=== PATIENT | male | born 1975 | race African-American/Black ===

== ENCOUNTER 2021-05-05 03:40 | Emergency (ER) | payer OTHER ==
[~2021-05-05] VITALS: Ht 175.3 cm; Wt 73.5 kg
[2021-05-05 03:40] VITALS: BP 124/79
[2021-05-05] MEDS ORDERED: DOXY100C2 PO (04:58)
[2021-05-05] MEDS ORDERED: PENICILLIN G BENZATHINE 2.4 MMU/4 ML ML IM ONE ×2 (05:00→05:02)
[2021-05-05] MEDS ORDERED: CEFTRIAXONE 500 MG VIAL IM ONE (05:00)
[2021-05-05] MEDS ORDERED: LIDOCAINE /MPF 1% VIAL 5 ML VIAL ONE (05:02)
[2021-05-05] MEDS ORDERED: CEFTRIAXONE 500 MG VIAL ONE (05:02)
== END 2021-05-05 05:48 | disposition home or self-care (01) ==
LOC: ER 03:47
DX: A64 Unspecified sexually transmitted disease (principal)
CPT/HCPCS: 87491; 87591; 96372 ×2; 99284; J0558; J0696; J3490

== ENCOUNTER 2021-07-16 05:07 | Emergency (ER) | payer OTHER ==
[~2021-07-16] VITALS: Ht 167.6 cm; Wt 59.0 kg
[~2021-07-16 05:07] MED LIST: DOXY100C2 PO
[2021-07-16 05:19] VITALS: BP 145/60
[2021-07-16] MEDS ORDERED: DOXY100C2 PO (05:22)
[2021-07-16] MEDS ORDERED: CEFTRIAXONE 500 MG VIAL ONE (05:24)
[2021-07-16] MEDS ORDERED: DOXYCYCLINE HYCLATE (100 MG) 100 MG TABLET ONE (05:24)
[2021-07-16] MEDS ORDERED: LIDOCAINE /MPF 1% VIAL 5 ML VIAL ONE (05:24)
--- NOTE | 2021-07-16 05:24 | NUR ---
BIBS C/O HAVING STD SYMPTOMS, PENIS DISCHARGE AND TROUBLE URINIATING. PT ALERT AND ORIENTED X3. AMBULATORY WITH NON LABORED BREATHING.
--- NOTE | 2021-07-16 05:24 | NUR ---
Patient discharged to home in stable condition. Written and verbal after care instructions given. Patient verbalizes understanding of instruction.
[2021-07-16] MEDS ORDERED: DOXYCYCLINE HYCLATE (100 MG) 100 MG TABLET PO ONE (05:30)
[2021-07-16] MEDS ORDERED: CEFTRIAXONE 500 MG VIAL IM ONE (05:30)
== END 2021-07-16 05:35 | disposition home or self-care (01) ==
LOC: ER 05:10
DX: N34.2 Other urethritis (principal); A64 Unspecified sexually transmitted disease; Z59.00 Homelessness unspecified; Z79.899 Other long term (current) drug therapy
CPT/HCPCS: 87491; 87591; 96372; 99283; J0696; J3490

== ENCOUNTER 2022-01-13 08:06 | Emergency (ER) | payer OTHER ==
[~2022-01-13] VITALS: Ht 170.2 cm; Wt 72.6 kg
[2022-01-13 08:07] VITALS: BP 126/93
--- NOTE | 2022-01-13 08:15 | NUR ---
SEEN AND EXAMINED BY .
[2022-01-13] MEDS ORDERED: CEFTRIAXONE 500 MG VIAL ONE (08:24)
[2022-01-13] MEDS ORDERED: AZITHROMYCIN 250 MG TABLET ONE (08:24)
[2022-01-13] MEDS ORDERED: LIDOCAINE /MPF 1% VIAL 5 ML VIAL ONE (08:24)
[2022-01-13] MEDS ORDERED: CEFTRIAXONE 500 MG VIAL IM ONE (08:30)
[2022-01-13] MEDS ORDERED: AZITHROMYCIN 250 MG TABLET PO ONE (08:30)
--- NOTE | 2022-01-13 08:35 | NUR ---
Patient discharged to home in stable condition. Written and verbal after care instructions given. Patient verbalizes understanding of instruction.
== END 2022-01-13 08:36 | disposition home or self-care (01) ==
LOC: ER 08:11
DX: N34.2 Other urethritis (principal); Z59.00 Homelessness unspecified; Z79.899 Other long term (current) drug therapy
CPT/HCPCS: 96372; 99283; J0696; J3490

== ENCOUNTER 2023-01-24 05:03 | Emergency (ER) | payer MEDICAID, OTHER ==
[~2023-01-24] VITALS: Ht 170.2 cm; Wt 68.5 kg
--- NOTE | 2023-01-24 06:05 | NUR ---
BIBSELF FROM STREET C/O R INDEX FINGER SWELLING X3 DAYS. PT A/OX.4 TOLERATING R/A WELL WITH NO RESP DISTRESS. SAFETY MEASURES IN PLACE.
[2023-01-24] MEDS ORDERED: LIDOCAINE 2% 20 ML MDV ONE (06:15)
[2023-01-24] MEDS ORDERED: IBUPROFEN 400 MG TABLET ONE (06:17)
[2023-01-24] MEDS ORDERED: HYDROCODONE/APAP 5/325MG TABLET ONE (06:17)
[2023-01-24] MEDS ORDERED: IBUPROFEN 400 MG TABLET PO ONE (06:30)
[2023-01-24] MEDS ORDERED: LIDOCAINE HCL/PF 2 % 5ML SDV 5 ML VIAL TP ONE (06:30)
[2023-01-24] MEDS ORDERED: HYDROCODONE/APAP 5/325MG TABLET PO ONE (06:30)
[2023-01-24] MEDS ORDERED: CEPH500C2 PO (07:18)
[2023-01-24] MEDS ORDERED: SULF1TAB48 PO (07:18)
[2023-01-24] MEDS ORDERED: IBUP-1955 PO (07:18)
--- NOTE | 2023-01-24 08:11 | NUR ---
Patient does not wish to proceed with medical care recommended by ER MD. Patient given information related to possible complications, up to and including , which could occur as a result of leaving the hospital at this time. Patient verbalizes understanding of risks involved due to leaving against medical advice. Patient refused to sign AMA form.
[2023-01-24 08:15] VITALS: BP 137/84
[2023-01-25] MEDS ORDERED: DOXY100C2 PO (15:50)
[2023-01-25] MEDS ORDERED: AMOX-430 PO (15:50)
== END 2023-01-24 08:15 | disposition left against medical advice (07) ==
LOC: ER 05:15
DX: S60.456A Superficial foreign body of right little finger, initial encounter (principal); L02.511 Cutaneous abscess of right hand; Z59.00 Homelessness unspecified; Z79.899 Other long term (current) drug therapy; X08.8XXA Exposure to other specified smoke, fire and flames, initial encounter; Y93.89 Activity, other specified; Y92.89 Other specified places as the place of occurrence of the external cause; Y99.8 Other external cause status
CPT/HCPCS: 99283; 73140; J3490

== ENCOUNTER 2023-01-25 06:05 | Emergency (ER) | payer MEDICAID, OTHER ==
[~2023-01-25] VITALS: Ht 167.6 cm; Wt 79.4 kg
[~2023-01-25 06:05] MED LIST changes: +CEPH500C2 PO; +IBUP-1955 PO; +SULF1TAB48 PO
[2023-01-25] MEDS ORDERED: VANCOMYCIN 1 GM in IV D5W 250 ML IV ONE (08:00)
[2023-01-25] MEDS ORDERED: PIPERACILLIN /TAZOBACTAM 3.375 G in IV D5W 50 ML IV ONE (08:00)
[2023-01-25] MEDS ORDERED: ONDANSETRON HCL/PF 4 MG/2 ML VIAL IV ONE (08:00)
[2023-01-25] MEDS ORDERED: MORPHINE SULFATE INJ 2 MG/ML DISP.SYRIN IV ONE (08:00)
[2023-01-25] MEDS ORDERED: PIPERACILLIN /TAZOBACTAM 3.375 G VIAL IV ONE ×2 (08:20→09:23)
[2023-01-25] MEDS ORDERED: ONDANSETRON HCL/PF 4 MG/2 ML VIAL ONE ×2 (08:21→09:23)
--- NOTE | 2023-01-25 08:30 | NUR ---
BIBRA FROM STREET FOR RIGHT HAND SWELLING. SLEEPING BUT AROUSABLE TO TOUCH, A/O X 3, TOLERATING WELL ON ROOM AIR.
--- NOTE | 2023-01-25 08:45 | NUR ---
PATIENT REFUSING IV START AT THIS TIME
--- NOTE | 2023-01-25 09:00 | NUR ---
BIBRA FOR RIGHT HAND INJURY, SLEEPING, AROUSABLE TO PAIN, TOLERATING WELL ON ROOM AIR.
[2023-01-25] MEDS ORDERED: MORPHINE SULFATE INJ 2 MG/ML DISP.SYRIN ONE (09:15)
[2023-01-25 09:35] LABS: BASOPHILS % (AUTO) 0.3 % (0.0-2.0); EOSINOPHILS % (AUTO) 0.7 % (0.0-6.0); HEMATOCRIT 43 % (39-51); HEMOGLOBIN 13.7 g/dL (13.5-17.5); LYMPHOCYTES # (AUTO) 1.6 K/uL (0.8-4.8); LYMPHOCYTES % (AUTO) 17.5 % (20.0-44.0); MEAN CORPUSCULAR HGB CONC 32 g/dl (31.0-36.0); MEAN CORPUSCULAR VOLUME 97 fL (80-96); MONOCYTES # (AUTO) 0.9 K/uL (0.1-1.30); MONOCYTES % (AUTO) 10.2 % (2.0-12.0); NEUTROPHILS # (AUTO) 6.5 K/uL (1.8-8.9); NEUTROPHILS % (AUTO) 71.3 % (43.0-81.0); PLATELET COUNT (AUTO) 326 K/uL (150-450); RED BLOOD CELL COUNT(AUTO) 4.37 MIL/uL (4.5-6.0); WHITE BLOOD COUNT (AUTO) 9.1 K/uL (4.3-11.0)
[2023-01-25 09:46] LABS: ALANINE AMINOTRANSFERASE 18 U/L (12-78); ALBUMIN 3.2 g/dL (3.4-5.0); ALKALINE PHOSPHATASE 107 U/L (46-116); ASPARTATE AMINOTRANSFERASE 21 U/L (15-37); BILIRUBIN,DIRECT 0.1 mg/dL (0.0-0.2); BILIRUBIN,TOTAL 0.6 mg/dL (0.2-1.0); CALCIUM, SERUM 8.9 mg/dL (8.5-10.1); CARBON DIOXIDE 26 mmol/L (21-32); CHLORIDE 103 mmol/L (98-107); CREATININE 1.2 mg/dL (0.6-1.3); GLUCOSE 87 mg/dL (74-106); POTASSIUM 3.9 mmol/L (3.5-5.1); SODIUM SERUM 136 mmol/L (136-145); TOTAL PROTEIN, SERUM 7.8 g/dL (6.4-8.2); UREA NITROGEN, BLOOD 13 mg/dL (7-18)
--- NOTE | 2023-01-25 10:28 | NUR ---
PER [employer] SUPERVISOR LANDSCAPE BORIS "CALL [facility] AT [phone] AND DIAL OPTION 2 TWICE"
--- NOTE | 2023-01-25 11:38 | NUR ---
CALLED [facility] AT [phone] [facility]AB[facility] REQUESTING FACESHEET FAXED TO: [phone] AND RN WILL CALL BACK.
--- NOTE | 2023-01-25 11:41 | NUR ---
COVID SWAB COLLECTED AND SENT TO LAB.
--- NOTE | 2023-01-25 11:46 | NUR ---
FACESHEET FAXED TO [phone]
--- NOTE | 2023-01-25 11:53 | NUR ---
PLATING TANK OPERATOR JOHN FROM [facility]SFER C[facility] WILL TRY TO GET A BED AT [facility] BECAUSE [facility] DOES NOT HAVE A HAND SPECIALIST. PLATING TANK OPERATOR JOHN TEL
--- NOTE | 2023-01-25 12:16 | NUR ---
DR. DAMICO FROM [facility] SPEAKING WITH DR. VERDUZCO.
--- NOTE | 2023-01-25 12:45 | NUR ---
CALLED [facility] AT [facility].
--- NOTE | 2023-01-25 14:10 | NUR ---
[place] [place] [facility] [phone] CL[place]ED DUE TO [facility]
--- NOTE | 2023-01-25 14:14 | NUR ---
CALLED [facility] [phone] AT [facility] PER CHANELLE. NO AVAILABLE BEDS.
--- NOTE | 2023-01-25 14:21 | NUR ---
CALLED [facility] [phone] FAXED FACESHEET TO [phone].
[2023-01-25] MEDS ORDERED: IOHEXOL-350 100 ML VIAL IV ONE (15:08)
[2023-01-25] MEDS ORDERED: IV NS 0.9% 250 ML IV ONE (15:09)
[2023-01-25] MEDS ORDERED: CT SWABBABLE VALVE TRANS SET 1 EA INFUS.SET MC ONE (15:09)
[2023-01-25 15:45] VITALS: BP 152/85
--- NOTE | 2023-01-25 15:46 | NUR ---
PT REFUSING CARE. REFUSED IV INSERTION. REFUSED CT SCAN. REPEATLY SAID "IM GOING TO LEAVE YOU GUYS ARE NOT DOING ME RIGHT" MD AND RN REPEATED SEVERAL TIMES THE URGENCY OF TREATMENT AND THAT THE CLIENT COULD LOSE HIS HAND OR OF INFECTIONS RESULTING FROM HAND INJURY. PT SIGNED AMA PAPER WORK
[2023-01-25] MEDS ORDERED: AMOX-430 PO (15:50)
[2023-01-25] MEDS ORDERED: DOXY100C2 PO (15:50)
--- NOTE | 2023-01-25 15:51 | NUR ---
PER PRIMARY NURSE RANDOLPH THE PATIENT IS AMA-ING. CALLED THE DREDGE MASTER JOHN MADE HER AWARE.
== END 2023-01-25 16:13 | disposition left against medical advice (07) ==
LOC: ER 06:12
DX: M65.9 Synovitis and tenosynovitis, unspecified (principal); Z59.00 Homelessness unspecified; Z79.899 Other long term (current) drug therapy; Z20.822 Contact with and (suspected) exposure to COVID-19
CPT/HCPCS: 99291; 96365; 96366; 96375; 87426; 96368; 93005; 71045; 73130; 85025; 80048; 87040 ×2; 83605; 80076; 36415; 86140; 80307; J3370; J2405; J2543; J7050; A4223; J2270; Q9967; C9803; J7060